=== PATIENT | male | born 1970 | race American Indian/Alaskan Native ===

== ENCOUNTER 2019-10-25 20:49 | Emergency (ER) | payer BC ==
[~2019-10-25] VITALS: Ht 177.8 cm; Wt 99.8 kg
[2019-10-25 20:55] VITALS: BP 151/82
--- NOTE | 2019-10-25 20:55 | NUR ---
TO BED # 06 AMBULATORY
--- NOTE | 2019-10-25 21:06 | NUR ---
DR. FLORIAN BEDSIDE EVALUATING PT
--- NOTE | 2019-10-25 21:15 | NUR ---
PT SEEN AND DISCAHRGED BY DR. FLORIAN. NO NURSING CARE PROVIDED.
[2019-10-25 21:23] VITALS: BP 151/82
--- NOTE | 2019-10-25 21:23 | NUR ---
Patient discharged with v/s stable. Written and verbal after care instructions given and explained. Patient alert, oriented and verbalized understanding of instructions. Ambulatory with steady gait. All questions addressed prior to discharge. ID band removed. Patient advised to follow up with PMD. Rx of FLUCINOLONE, KEFLEX WAS given. Patient educated on indication of medication including possible reaction and side effects. Opportunity to ask questions provided and answered.
== END 2019-10-25 21:23 | disposition home or self-care (01) ==
LOC: MED 20:49
DX: L30.9 Dermatitis, unspecified (principal)
CPT/HCPCS: 99283

== ENCOUNTER 2019-12-12 10:55 | Outpatient (CLI) | payer OTHER ==
[2019-12-12 11:20] LABS: BASOPHILS % (AUTO) 0.4 % (0.0-2.0); EOSINOPHILS # (AUTO) 0.3 K/uL (0-0.4); EOSINOPHILS % (AUTO) 5.2 % (0.0-4.0); HEMOGLOBIN 13.8 g/dL (12.0-18.0); LYMPHOCYTES # (AUTO) 1.5 K/uL (2.0-11.5); MEAN CORPUSCULAR HEMOGLOBIN 28 pg (27-31); MEAN CORPUSCULAR HGB CONC 33 g/dL (33-37); MEAN CORPUSCULAR VOLUME 84.9 fL (80-94); MONOCYTES # (AUTO) 0.4 K/uL (0.8-1.0); MONOCYTES % (AUTO) 7.7 % (1.7-9.3); NEUTROPHILS # (AUTO) 3.3 K/uL (1.8-7.7); NEUTROPHILS % (AUTO) 59.7 % (42.2-75.2); PLATELET COUNT (AUTO) 215 K/uL (140-450); RED BLOOD CELL COUNT(AUTO) 4.94 MIL/uL (4.20-6.10); RED CELL DISTRIBUTION WIDTH 14.4 % (11.6-13.7); WHITE BLOOD COUNT (AUTO) 5.6 K/uL (4.8-10.8)
[2019-12-12 11:41] LABS: THYROID STIMULATING HORMONE 0.87 uIU/mL (0.34-3.74)
== END 2019-12-12 20:38 | disposition home or self-care (01) ==
LOC: MLB 10:55
PROVIDERS: ATTEND General Practice
DX: E78.5 Hyperlipidemia, unspecified (principal); I15.9 Secondary hypertension, unspecified
CPT/HCPCS: 36415; 83036; 84443; 85025